=== PATIENT | female | born 1980 | race Caucasian/White ===

== ENCOUNTER 2020-07-16 08:40 | Emergency (ER) | payer OTHER ==
--- NOTE | 2020-07-16 09:27 | ED Physician Documentation ---
History of Present Illness - Stated complaint Stated Complaint: NUMBNESS LT ARM - Chief complaint Chief Complaint: Ext Problem - History obtained from History obtained from: Patient - History of Present Illness Timing: How many days ago (4) Pain level max: 3 Pain level now: 2 - Additonal information Additional information: 39-year-old female presents to the emergency department stating that she felt pain/pressure in the back of her head on the right side as well as the right neck starting approximately 4 days ago. This comes and goes. She states that since that time she has noticed the right side of her tongue feels "numb". She states that she is tasting items differently as well. This morning she states she had the "sensation of going numb" to the right upper arm and right lower leg, these both resolved rapidly. She states she had similar symptoms several months ago while in [place], but did not last this long. Did not seek any attention at that time. Has not had any trauma or recent illnesses. Nothing makes it better or worse. Is not on any medications. Patient is not , breast-feeding or trying to become . Review of Systems Ten Systems: 10 systems reviewed and negative Constitutional: denies: Fever, Chills Ears: denies: Ear pain Nose: denies: Rhinorrhea / runny nose, Congestion Throat: denies: Sore throat Cardiac: denies: Chest pain / pressure Respiratory: denies: Cough GI: denies: Nausea, Vomiting, Diarrhea : denies: Dysuria, Frequency, Hesitancy, Now EGA Skin: denies: Rash Musculoskeletal: denies: Back pain Neurologic: reports: Numbness. denies: Generalized weakness, Focal weakness, Difficulty speaking, Syncope, Seizure, Confused, Altered mental status PD PAST MEDICAL HISTORY - Past Medical History Past Medical History: Yes DIRECTOR TECHNICAL: Miscarriage(s), Other - Past Surgical History Past Surgical History: Yes General: Cholecystectomy - Present Medications Home Medications: Ambulatory Orders Medication Instructions Recorded Confirmed Prenat 115/Iron Fum/Folic/Dss 1 tab PO DAILY 06/27/15 06/27/15 [ 19 Tablet] Valacyclovir HCl [Valtrex] 1,000 mg PO TID #21 tablet 07/16/20 predniSONE [Prednisone] 60 mg PO DAILY #21 tablet 07/16/20 - Allergies Allergies/Adverse Reactions: Allergies Allergy/AdvReac Type Severity Reaction Status Date / Time No Known Drug Allergies Allergy Verified 07/16/20 08:57 - Social History Does the pt smoke?: No Smoking Status: Never smoker Does the pt drink ETOH?: No Does the pt have substance abuse?: No - Immunizations Immunizations are current?: Yes PD ED PE NORMAL - Vitals Vital signs reviewed: Yes - General General: Alert and oriented X 3, No acute distress, Well developed/nourished - HEENT HEENT: Atraumatic, PERRL, EOMI, Ears normal, Moist mucous membranes, Pharynx benign - Neck Neck: Supple, no meningeal sign, No JVD, No bruit - Cardiac Cardiac: RRR, Strong equal pulses - Respiratory Respiratory: No respiratory distress, Clear bilaterally - Abdomen Abdomen: Normal bowel sounds, Soft, Non tender, Non distended - Derm Derm: Warm and dry - Extremities Extremities: No edema, No calf tenderness / cord - Neuro Neuro: Alert and oriented X 3, Normal speech, Other (Mild facial droop on the right with flattening of the nasolabial fold. Positive Steward's phenomena on the right eye. Mild paralysis of the right forehead.) - Psych Psych: Normal mood, Normal affect Results - Vitals Vitals: Vital Signs - 24 hr 07/16/20 08:48 Temperature 36.3 C L Heart Rate 63 Respiratory 15 Rate Blood Pressure 135/76 H O2 Saturation 99 Oxygen O2 Source Room air - EKG (time done) 0931 Rate: Rate (enter#) (67) Rhythm: NSR [place]: Normal Intervals: Normal IN QRS: Normal Ischemia: Normal ST segments - Labs Labs: Laboratory Tests 07/16/20 07/16/20 07/16/20 09:44 09:52 09:52 WBC 5.5 RBC 4.27 Hgb 12.9 Hct 38.9 MCV 91.1 MCH 30.2 MCHC 33.2 RDW 12.5 Plt Count 275 MPV 9.2 Neut # (Auto) 3.5 Lymph # (Auto) 1.7 [place] # (Auto) 0.3 Eos # (Auto) 0.0 Baso # (Auto) 0.0 Absolute Nucleated RBC 0.00 Nucleated RBC % 0.0 Sodium 139 Potassium 3.6 Chloride 102 Carbon Dioxide 27 Anion Gap 10.0 BUN 15 Creatinine 0.6 Estimated GFR (MDRD) 112 Glucose 103 H Calcium 9.2 Phosphorus 3.7 Magnesium 2.1 Total Bilirubin 1.6 H AST 42 ALT 53 Alkaline Phosphatase 67 Total Protein 8.3 H Albumin 4.4 Globulin 3.9 Albumin/Globulin Ratio 1.1 Lipase 22 Urine Color YELLOW Urine Clarity HAZY Urine pH 8.0 H Ur Specific [place] 1.020 Urine Protein NEGATIVE Urine Glucose (UA) NEGATIVE Urine Ketones NEGATIVE Urine Occult Blood LARGE H Urine Nitrite NEGATIVE Urine Bilirubin NEGATIVE Urine Urobilinogen 0.2 (NORMAL) Ur Leukocyte Esterase NEGATIVE Urine RBC TNTC H Urine WBC 0-3 Ur Squamous Epith Cells MOD Squamous H Urine Bacteria Few Urine Mucus Few Strands Ur Microscopic Review INDICATED Urine Culture Comments NOT INDICATED Urine HCG, Qual NEGATIVE - Rads (name of study) CTA head Radiology: Prelim report reviewed, EMP read contemporaneously, See rad report (normal) CTA neck Radiology: Prelim report reviewed, EMP read contemporaneously, See rad report (normal) PD MEDICAL DECISION MAKING - ED course Complexity details: reviewed results, re-evaluated patient, considered differential, d/w patient ED course: 39-year-old female with what appears to be a Steward's palsy. Normal laboratory and radiographic imaging. Patient is otherwise well-appearing, nontoxic. No current neurological deficits in the bilateral arms or legs. No evidence of dissection. Neck pain resolved as well. We will place on valacyclovir and prednisone and have her follow-up with her doctor. Patient counseled regarding signs and symptoms for which I believe and urgent re-evaluation would be necessary. Patient with good understanding of and agreement to plan and is comfortable going home at this time This document was made in part using voice recognition software. While efforts are made to proofread this document, sound alike and grammatical errors may occur. Departure - Departure Disposition: 01 Home, Self Care Clinical Impression: Steward's palsy Condition: Good Instructions: ED [place] Palsy Follow-Up: Jessica Diane ARNP, PUBLIC HEALTH SANITARIAN TECHNICIAN-C [Primary Care Provider] - Within 1 week Prescriptions: predniSONE [Prednisone] 60 mg PO DAILY #21 tablet Valacyclovir HCl [Valtrex] 1,000 mg PO TID #21 tablet Comments: Use the medications as prescribed. Return if you worsen. Follow-up with your doctor for further care. It appears that you are having a Steward's palsy today. Artificial tears will help with the eye, gel tears will help especially. Your doctor will likely want to perform a nonemergent MRI to ensure that there are no other abnormalities given that your symptoms partially occurred a few months ago. NIHSS - Time Time: 09:14 - Level of Consciousness Level of consciousness: (0) Alert, Keenly responsive LOC Questions: (0) Answers both Q's correct LOC Commands: (0) Performs both correctly - Gaze Best Gaze: (0) Normal - Visual Visual: (0) No loss - Facial Palsy Facial Palsy: (1) Minor paralysis - Motor Arms (both separate) Motor Arm (right): (0) No drift Motor Arm (left): (0) No drift - Motor Legs (both separate) Motor Leg (right): (0) No drift Motor Leg (left): (0) No drift - Limb Ataxia Limb Ataxia: (0) Absent - Sensory Sensory: (0) Normal - Best Language Best Language: (0) No aphasia - Dysarthria Dysarthria: (0) Normal - Extinction and Inattention (formally neg Extinction and inattention: (0) No abnormality - Total Score/Results Total Score/Result: 1
[2020-07-16] MEDS ORDERED: IOVERSOL 320 100 ML VIAL IVP ONE ×2 (09:41→16:48)
[2020-07-16 09:59] LABS: BASOPHILS % (AUTO) 0.5 %; EOSINOPHILS % (AUTO) 0.5 %; HGB - HEMOGLOBIN 12.9 g/dL (12.0-16.0); LYMPHOCYTES # (AUTO) 1.7 10^3/uL (1.5-3.5); LYMPHOCYTES % (AUTO) 31.2 %; MEAN CORPUSCULAR HEMOGLOBIN 30.2 pg (27.0-31.0); MEAN CORPUSCULAR HGB CONC 33.2 g/dL (32.0-36.0); MEAN CORPUSCULAR VOLUME 91.1 fL (81.0-99.0); MEAN PLATELET VOLUME 9.2 fL (7.9-10.8); MONOCYTES # (AUTO) 0.3 10^3/uL (0.0-1.0); MONOCYTES % (AUTO) 5.1 %; NEUTROPHILS # (AUTO) 3.5 10^3/uL (1.5-6.6); NEUTROPHILS % (AUTO) 62.5 %; PLT - PLATELET COUNT 275 10^3/uL (130-450); RED BLOOD COUNT 4.27 10^6/uL (4.20-5.40); RED CELL DISTRIBUTION WIDTH 12.5 % (12.0-15.0); WHITE BLOOD COUNT 5.5 x10^3/uL (4.8-10.8)
[2020-07-16 10:10] LABS: BILIRUBIN,URINE NEGATIVE (NEGATIVE); GLUCOSE, URINE (UA) NEGATIVE (NEGATIVE); KETONES,URINE (UA) NEGATIVE (NEGATIVE); LEUKOCYTE ESTERASE, URINE NEGATIVE (NEGATIVE); NITRITE,URINE NEGATIVE (NEGATIVE); OCCULT BLOOD,URINE LARGE (NEGATIVE); PROTEIN,URINE NEGATIVE (NEGATIVE); UROBILINOGEN,URINE 0.2 (NORMAL) E.U./dL (NORMAL)
[2020-07-16 10:12] LABS: ALBUMIN 4.4 g/dL (3.2-5.5); ALBUMIN/GLOBULIN RATIO 1.1 (1.0-2.2); BILIRUBIN,TOTAL 1.6 mg/dL (0.2-1.0); CALCIUM 9.2 mg/dL (8.5-10.3); CREATININE 0.6 mg/dL (0.4-1.0); MAGNESIUM 2.1 mg/dL (1.7-2.8); PHOSPHORUS 3.7 mg/dL (2.5-4.6); TOTAL PROTEIN 8.3 g/dL (6.7-8.2)
[2020-07-16 10:18] LABS: CLARITY,URINE HAZY (CLEAR); HCG UR QUAL NEGATIVE
[2020-07-16 10:34] LABS: BACTERIA,URINE Few /HPF (None Seen); RBC,URINE TNTC /HPF (0-5); SQUAMOUS EPITHELIAL CELL,UR MOD Squamous (<= Few)
[2020-07-16 10:35] LABS: MUCUS,URINE Few Strands
--- NOTE | 2020-07-16 11:04 | CT Report ---
PROCEDURE: ANGIO HEAD W/WO INDICATIONS: R neck pain, R facial numbness CONTRAST: IV CONTRAST: Optiray 320 ml: 80 PO CONTRAST: *NO PO CONTRAST TECHNIQUE: Precontrast 4.5 mm thick angled axial sections acquired from the foramen magnum to the vertex. Afte r the administration of intravenous contrast, 1 mm thick sections acquired through the [place] of [place] is. Postcontrast 4.5 mm thick sections then re-acquired from the foramen magnum to the vertex. 3-di mensional dcsdrfi-adogectjr-llafbjyrdr (MIP) and/or volume rendering reformats were acquired of the c entral intracranial vasculature. For radiation dose reduction, the following was used: automated ex posure control, adjustment of mA and/or kV according to patient size. COMPARISON: None FINDINGS: Image quality: Excellent. Anterior circulation: Intracranial internal carotid arteries are normal in size and flow. The flow within the paired anterior cerebral arteries is normal and symmetric. The flow within the middle cer ebral arteries is normal and symmetric. The anterior communicating artery is seen. No aneurysms are seen. Posterior circulation: Visualized portions of the vertebral arteries demonstrate normal caliber, and join to form a normal appearing basilar artery. Flow within the posterior cerebral arteries is norm al and symmetric. No aneurysms are seen. CSF spaces: Ventricles are normal in size and shape. Basal cisterns are patent. No extra-axial flu id collections. Brain: No midline shift. No intracranial bleeds or masses. [place]-white matter interface appears int act. Skull and face: Calvarium and facial bones appear intact, without suspicious lesions. Sinuses: Visualized sinuses and mastoids are clear. IMPRESSION: Normal CT angiogram of the head. No intracranial arterial occlusion, stenosis, aneurysm, or vascular malformation. Reviewed by: Guanakito Molina MD on 07/16/2020 11:03 AM PDT Approved by: Guanakito Molina MD on 07/16/2020 11:03 AM PDT Station ID: [id number]
--- NOTE | 2020-07-16 11:05 | CT Report ---
PROCEDURE: ANGIO NECK W INDICATIONS: R neck pain, R facial numbness CONTRAST: IV CONTRAST: Optiray 320 ml: 100 PO CONTRAST: *NO PO CONTRAST TECHNIQUE: After the administration of intravenous contrast, 1.5 mm axial sections acquired from the aortic arch to the [place] of [place]. Coronal 3-D maximum intensity projection (MIP) and/or volume rendering ref ormats were then performed. For radiation dose reduction, the following was used: automated exposur e control, adjustment of mA and/or kV according to patient size. COMPARISON: None. FINDINGS: Image quality: Excellent. Carotid system: The great vessels demonstrate a conventional anatomy as they arise from the aortic a rch. The origins of the common carotid arteries appear patent. The common carotid arteries demonstr ate normal calibers and courses. The bifurcation regions appear normal bilaterally. The internal ca rotid arteries demonstrate normal caliber and course. Posterior circulation: The origins of the vertebral arteries appear patent. The more superior porti ons of the vertebral arteries demonstrate normal course and caliber. They join to form a normal appe aring basilar artery. Soft tissues: Visualized neck soft tissues demonstrate no suspicious abnormalities. The thyroid gla nd is normal in size. Bones: No suspicious bony lesions. Visualized cervical spine appears normally aligned. IMPRESSION: Normal CT angiogram of the neck. No findings of arterial dissection or hemodynamically significant na rrowing. The estimate of stenosis included in the report of the imaging study was calculated using the NASCET method Reviewed by: Guanakito Molina MD on 07/16/2020 11:04 AM PDT Approved by: Guanakito Molina MD on 07/16/2020 11:04 AM PDT Station ID: [id number]
[2020-07-16 11:24] VITALS: BP 127/82
== END 2020-07-16 11:35 | disposition home or self-care (01) ==
LOC: ED 08:40
DX: G51.0 Bell's palsy (principal)
CPT/HCPCS: 36415; 70496; 70498; 80053; 81001; 81025; 83690; 83735; 84100; 85025; 93005; 99284; Q9967; 81003; 87086

== ENCOUNTER 2020-08-12 15:51 | Outpatient (CLI) | payer OTHER ==
--- NOTE | 2020-08-12 17:23 | MRI Report ---
PROCEDURE: Cervical Spine W/O INDICATIONS: RADICULOPATHY AFFECTING THE ARM TECHNIQUE: Noncontrast sagittal T1 spin echo and T2 fast spin echo, sagittal STIR, foraminal oblique sagittal T2 fast spin echo, and axial gradient echo or T2 fast spin echo through the cervical spine. COMPARISON: CT examination dated 07.16.20 FINDINGS: Image quality: Excellent. Alignment and Curvature: There is minimal grade 1 retrolisthesis of C3 on C4 and C4 on C5. Bone Marrow: Marrow demonstrates normal overall signal. Spinal Cord: Visualized spinal cord has normal size and signal. No cerebellar tonsillar herniation. Paraspinous Soft Tissues: No paravertebral masses. Prevertebral soft tissues are normal in thicknes s. C2-C3: Normal in appearance. C3-C4: Normal in appearance. C4-C5: Normal in appearance. C5-C6: Minimal diffuse disc bulge. Minimal canal stenosis. No foraminal stenosis. C6-C7: Minimal diffuse disc bulge. No significant canal, nor foraminal stenosis. C7-T1: Normal in appearance. IMPRESSION: Minimal lower cervical degenerative disc disease. No significant canal, nor foraminal stenosis. No ne ural impingement. No explanation for radiculopathy. Reviewed by: Arsh Santo MD on 08/12/2020 4:22 PM [facility] Approved by: Arsh Santo MD on 08/12/2020 4:22 PM [facility] Station ID: [id number]
== END 2020-08-12 15:52 | disposition home or self-care (01) ==
LOC: DI 15:51
PROVIDERS: ATTEND Nurse Practitioner Family
DX: M50.322 Other cervical disc degeneration at C5-C6 level (principal)
CPT/HCPCS: 72141

== ENCOUNTER 2020-08-12 16:36 | Outpatient (CLI) | payer OTHER ==
[~2020-08-12 16:36] MED LIST: GADOBUTROL 10 MMOL/10 ML VIAL ONE
== END 2020-08-12 16:37 | disposition home or self-care (01) ==
LOC: DI 16:36
PROVIDERS: ATTEND Nurse Practitioner Family
DX: Z53.9 Procedure and treatment not carried out, unspecified reason (principal)